=== PATIENT | female | born 1945 | race Hispanic/Latino ===

== ENCOUNTER → 2017-08-28 | Outpatient (CLI) | payer OTHER | END | disposition home or self-care (01) | LOC: OIH 09:36 | PROVIDERS: ATTEND Internal Medicine Cardiovascular Disease | DX: J44.9 Chronic obstructive pulmonary disease, unspecified (principal); I50.32 Chronic diastolic (congestive) heart failure; I51.7 Cardiomegaly; M19.012 Primary osteoarthritis, left shoulder; M19.011 Primary osteoarthritis, right shoulder | CPT/HCPCS: 71046 ==

== ENCOUNTER → 2020-05-15 | Outpatient (CLI) | payer OTHER | END | disposition home or self-care (01) | LOC: RAH 10:38 | PROVIDERS: ATTEND Internal Medicine | DX: K80.20 Calculus of gallbladder without cholecystitis without obstruction (principal); K59.00 Constipation, unspecified; M47.815 Spondylosis without myelopathy or radiculopathy, thoracolumbar region; K59.8 Other specified functional intestinal disorders | CPT/HCPCS: 74018 ==

== ENCOUNTER 2021-02-20 14:39 | Inpatient (IN) | payer OTHER ==
[~2021-02-20] VITALS: Ht 170.2 cm; Wt 112.0 kg
[2021-02-20 14:40] VITALS: BP 127/85
[2021-02-20] MEDS ORDERED: IPRATROPIUM/ALBUTEROL SULFATE 3 ML SOLUTION IH ONE ×2 (15:00→19:58)
[2021-02-20 15:42] VITALS: BP 130/78
[2021-02-20 15:51] LABS: BASOPHILS % (AUTO) 0.4 % (0.0-5.0); EOSINOPHILS % (AUTO) 3.1 % (0.0-8.0); HEMATOCRIT 32.3 % (36-48); LYMPHOCYTES % (AUTO) 12.4 % (21.0-51.0); MEAN CORPUSCULAR HEMOGLOBIN 26.8 pg (27.0-33.0); MEAN CORPUSCULAR HGB CONC 33.4 g/dL (32.0-36.0); MEAN CORPUSCULAR VOLUME 80.1 fL (79-99); MONOCYTES % (AUTO) 8.4 % (3.0-13.0); NEUTROPHILS % (AUTO) 75.3 % (40.0-77.0); PLATELET COUNT (AUTO) 239 K/uL (130-400); RED BLOOD CELL COUNT(AUTO) 4.03 MIL/uL (4.00-5.50); RED CELL DISTRIBUTION WIDTH 14.4 % (11.0-15.5)
[2021-02-20 16:26] LABS: ALBUMIN 3.6 g/dL (3.5-5.0); CREATININE 1.2 mg/dL (0.5-1.5); TOTAL PROTEIN, SERUM 7.4 g/dL (6.0-8.3)
[2021-02-20 17:23] LABS: APPEARANCE,URINE Clear (CLEAR); BILIRUBIN,URINE Negative (NEGATIVE); COLOR,URINE Yellow (YELLOW); GLUCOSE, URINE (UA) Negative (NEGATIVE); KETONES,URINE Negative (NEGATIVE); LEUKOCYTE ESTERASE ,URINE Negative (NEGATIVE); NITRATE,URINE Negative (NEGATIVE); OCCULT BLOOD,URINE Negative (NEGATIVE); PROTEIN,URINE Negative (NEGATIVE); UROBILINOGEN,URINE 0.2 mg/dL (0.2-1.0)
[2021-02-20] MEDS ORDERED: LACTULOSE 20 GM/30 ML UDCUP PO PRN (19:00)
[2021-02-20] MEDS ORDERED: ONDANSETRON 4MG INJ IV PRN (19:00)
[2021-02-20] MEDS: 0.9%NACL 1000ML 1,000 ML IV SCH (19:00)
[2021-02-20] MEDS ORDERED: HYDRALAZINE 20MG/ML VIAL IV PRN (19:00)
[2021-02-20 19:05] VITALS: BP 121/78
[2021-02-20 19:32] LABS: CREATININE 1.2 mg/dL (0.5-1.5); PHOSPHORUS 3.4 mg/dL (2.5-4.9); POTASSIUM 3.8 mmol/L (3.5-5.1)
[2021-02-20] MEDS ORDERED: HEPARIN 5,000 UNIT VIAL SQ SCH (21:00)
[2021-02-20] MEDS: IPRATROPIUM/ALBUTEROL SULFATE 3 ML SOLUTION IH SCH (22:00)
[2021-02-20 23:00] VITALS: BP 124/68
[2021-02-20 23:51] VITALS: BP 113/76
[2021-02-21] VITALS (10 sets, daily range): BP systolic 104–150; BP diastolic 33–90
[2021-02-21] MEDS: ACETAMINOPHEN 325 MG TAB PO PRN ×2 (00:11→19:43)
[2021-02-21] MEDS ORDERED: VALS80TA30 PO (00:25)
[2021-02-21] MEDS ORDERED: ROSU5TAB12 PO (00:25)
[2021-02-21] MEDS ORDERED: AMLO-257 PO (00:25)
[2021-02-21] MEDS ORDERED: FURO40TA5 PO (00:25)
[2021-02-21] MEDS ORDERED: CEPH500C2 PO (00:25)
[2021-02-21] MEDS ORDERED: METO2.5T2 PO (00:25)
[2021-02-21] MEDS ORDERED: POTA20TA82 PO (00:25)
[2021-02-21] MEDS ORDERED: ALBU8.5H8 IH (00:25)
[2021-02-21] MEDS ORDERED: MONT10TA32 PO (00:25)
[2021-02-21] MEDS ORDERED: APIX5TAB PO (00:25)
[2021-02-21] MEDS ORDERED: BENZ-70 PO (00:25)
[2021-02-21] MEDS ORDERED: METO-408 PO (00:25)
[2021-02-21] MEDS ORDERED: CALC-190 PO (00:25)
[2021-02-21 01:04] LABS: CREATININE 1.3 mg/dL (0.5-1.5); POTASSIUM 3.7 mmol/L (3.5-5.1)
[2021-02-21] MEDS: IPRATROPIUM/ALBUTEROL SULFATE 3 ML SOLUTION IH SCH ×6 (02:00→22:28)
[2021-02-21] MEDS: 0.9%NACL 1000ML 1,000 ML IV SCH (03:57)
[2021-02-21 06:39] LABS: BASOPHILS % (AUTO) 0.7 % (0.0-5.0); EOSINOPHILS % (AUTO) 4.4 % (0.0-8.0); HEMATOCRIT 29.6 % (36-48); LYMPHOCYTES % (AUTO) 10.5 % (21.0-51.0); MEAN CORPUSCULAR HEMOGLOBIN 27.6 pg (27.0-33.0); MEAN CORPUSCULAR HGB CONC 33.8 g/dL (32.0-36.0); MEAN CORPUSCULAR VOLUME 81.8 fL (79-99); MONOCYTES % (AUTO) 9.6 % (3.0-13.0); NEUTROPHILS % (AUTO) 74.7 % (40.0-77.0); PLATELET COUNT (AUTO) 200 K/uL (130-400); RED BLOOD CELL COUNT(AUTO) 3.62 MIL/uL (4.00-5.50); RED CELL DISTRIBUTION WIDTH 14.4 % (11.0-15.5); WHITE BLOOD COUNT (AUTO) 7.1 K/uL (4.8-10.8)
[2021-02-21 06:58] LABS: CREATININE 1.2 mg/dL (0.5-1.5); MAGNESIUM 1.9 mg/dL (1.80-2.40); PHOSPHORUS 4.2 mg/dL (2.5-4.9); POTASSIUM 3.8 mmol/L (3.5-5.1)
[2021-02-21] MEDS ORDERED: ALBUTEROL 0.083% 2.5 MG/3 ML INH IH PRN (08:00)
[2021-02-21] MEDS: FAMOTIDINE 20MG TAB PO SCH (09:05)
[2021-02-21] MEDS: AMLODIPINE 5 MG TAB PO SCH (09:05)
[2021-02-21] MEDS: APIXABAN 5 MG TABLET PO SCH ×2 (09:05→19:38)
[2021-02-21] MEDS: MONTELUKAST SODIUM 10 MG TAB PO SCH (09:05)
[2021-02-21] MEDS: SODIUM CHLORIDE 1,000 MG TAB PO SCH ×3 (09:05→21:22)
[2021-02-21] MEDS: METOPROLOL SUCCINATE 50 MG TAB.SR.24H PO SCH (09:05)
[2021-02-21 12:48] LABS: CREATININE 1.3 mg/dL (0.5-1.5); POTASSIUM 3.6 mmol/L (3.5-5.1)
[2021-02-21 18:31] LABS: CREATININE 1.3 mg/dL (0.5-1.5); POTASSIUM 3.7 mmol/L (3.5-5.1)
[2021-02-21] MEDS: ATORVASTATIN 10 MG TABLET PO SCH (19:38)
[2021-02-22 00:35] LABS: CREATININE 1.2 mg/dL (0.5-1.5); POTASSIUM 3.7 mmol/L (3.5-5.1)
[2021-02-22] MEDS: IPRATROPIUM/ALBUTEROL SULFATE 3 ML SOLUTION IH SCH ×6 (02:27→22:36)
[2021-02-22] MEDS: SODIUM CHLORIDE 1,000 MG TAB PO SCH ×5 (02:58→20:59)
[2021-02-22 03:53] VITALS: BP 149/80
[2021-02-22 07:15] LABS: CREATININE 1.2 mg/dL (0.5-1.5); POTASSIUM 3.5 mmol/L (3.5-5.1)
[2021-02-22 07:30] VITALS: BP 108/75
[2021-02-22] MEDS: AMLODIPINE 5 MG TAB PO SCH (09:00)
[2021-02-22] MEDS: METOPROLOL SUCCINATE 50 MG TAB.SR.24H PO SCH (09:11)
[2021-02-22] MEDS: APIXABAN 5 MG TABLET PO SCH ×2 (09:11→20:58)
[2021-02-22] MEDS: FAMOTIDINE 20MG TAB PO SCH (09:11)
[2021-02-22] MEDS: MONTELUKAST SODIUM 10 MG TAB PO SCH (09:11)
[2021-02-22 11:00] VITALS: BP 142/70
[2021-02-22] MEDS: ACETAMINOPHEN 325 MG TAB PO PRN ×2 (12:10→21:49)
[2021-02-22 12:51] LABS: CREATININE 1.2 mg/dL (0.5-1.5); POTASSIUM 3.3 mmol/L (3.5-5.1)
[2021-02-22 16:00] VITALS: BP 142/70
[2021-02-22 19:40] VITALS: BP 129/105
[2021-02-22] MEDS: ATORVASTATIN 10 MG TABLET PO SCH (20:58)
[2021-02-22 23:15] VITALS: BP 95/50
[2021-02-23] MEDS: SODIUM CHLORIDE 1,000 MG TAB PO SCH ×5 (02:26→23:37)
[2021-02-23] MEDS: IPRATROPIUM/ALBUTEROL SULFATE 3 ML SOLUTION IH SCH ×6 (02:31→22:24)
[2021-02-23 04:30] VITALS: BP 113/52
[2021-02-23 05:43] LABS: CREATININE 1.3 mg/dL (0.5-1.5); POTASSIUM 3.2 mmol/L (3.5-5.1)
[2021-02-23] MEDS ORDERED: KCL 20 MEQ ERTAB PO ONE (05:58)
[2021-02-23] MEDS ORDERED: LIDOCAINE HCL-MPF 1% 2ML VIAL IV PRN (06:00)
[2021-02-23] MEDS ORDERED: POTASSIUM CHLORIDE 10% ELIXIR 20 MEQ/15 ML UDCUP PO PRN (06:00)
[2021-02-23] MEDS ORDERED: POTASSIUM CHLORIDE 20MEQ/100ML 100 ML IV PRN (06:00)
[2021-02-23 08:00] VITALS: BP 120/48
[2021-02-23] MEDS: MONTELUKAST SODIUM 10 MG TAB PO SCH (08:50)
[2021-02-23] MEDS: AMLODIPINE 5 MG TAB PO SCH (08:50)
[2021-02-23] MEDS: FAMOTIDINE 20MG TAB PO SCH (08:50)
[2021-02-23] MEDS: KCL 20 MEQ ERTAB PO PRN ×2 (08:51→14:56)
[2021-02-23] MEDS: APIXABAN 5 MG TABLET PO SCH ×2 (08:51→21:14)
[2021-02-23] MEDS: METOPROLOL SUCCINATE 50 MG TAB.SR.24H PO SCH (08:51)
[2021-02-23 12:00] VITALS: BP 117/62
[2021-02-23 16:00] VITALS: BP 126/60
[2021-02-23 19:30] VITALS: BP 121/72
[2021-02-23] MEDS: ATORVASTATIN 10 MG TABLET PO SCH (21:14)
[2021-02-23 23:09] VITALS: BP 105/58
[2021-02-23] MEDS: ACETAMINOPHEN 325 MG TAB PO PRN (23:38)
[2021-02-24] MEDS: IPRATROPIUM/ALBUTEROL SULFATE 3 ML SOLUTION IH SCH ×6 (02:22→21:49)
[2021-02-24 03:20] VITALS: BP 108/62
[2021-02-24] MEDS: SODIUM CHLORIDE 1,000 MG TAB PO SCH ×2 (06:15→14:31)
[2021-02-24 06:40] LABS: CREATININE 1.2 mg/dL (0.5-1.5)
[2021-02-24 07:00] VITALS: BP 117/67
[2021-02-24] MEDS: METOPROLOL SUCCINATE 50 MG TAB.SR.24H PO SCH (09:57)
[2021-02-24] MEDS: APIXABAN 5 MG TABLET PO SCH ×2 (09:57→20:46)
[2021-02-24] MEDS: MONTELUKAST SODIUM 10 MG TAB PO SCH (09:57)
[2021-02-24] MEDS: AMLODIPINE 5 MG TAB PO SCH (09:57)
[2021-02-24] MEDS: FAMOTIDINE 20MG TAB PO SCH (09:57)
[2021-02-24 11:00] VITALS: BP 139/56
[2021-02-24] MEDS: ACETAMINOPHEN 325 MG TAB PO PRN ×2 (14:30→20:47)
[2021-02-24 15:00] VITALS: BP 119/51
[2021-02-24] MEDS: ATORVASTATIN 10 MG TABLET PO SCH (20:47)
[2021-02-24 23:21] VITALS: BP 131/39
[2021-02-25] MEDS: SODIUM CHLORIDE 1,000 MG TAB PO SCH ×5 (00:24→23:42)
[2021-02-25] MEDS: IPRATROPIUM/ALBUTEROL SULFATE 3 ML SOLUTION IH SCH ×6 (02:15→23:17)
[2021-02-25 04:15] VITALS: BP 119/51
[2021-02-25 05:43] LABS: ALBUMIN 3.1 g/dL (3.5-5.0); BILIRUBIN,TOTAL 0.8 mg/dL (0.2-1.0); CREATININE 1.3 mg/dL (0.5-1.5); POTASSIUM 3.5 mmol/L (3.5-5.1); TOTAL PROTEIN, SERUM 6.6 g/dL (6.0-8.3)
[2021-02-25] MEDS: KCL 20 MEQ ERTAB PO PRN (05:59)
[2021-02-25 08:00] VITALS: BP 117/92
[2021-02-25] MEDS ORDERED: NACL NASAL SPRAY 120 SPRAY/BOTTLE NS PRN (08:00)
[2021-02-25] MEDS: AMLODIPINE 5 MG TAB PO SCH (09:16)
[2021-02-25] MEDS: METOPROLOL SUCCINATE 50 MG TAB.SR.24H PO SCH (09:16)
[2021-02-25] MEDS: FAMOTIDINE 20MG TAB PO SCH (09:16)
[2021-02-25] MEDS: APIXABAN 5 MG TABLET PO SCH ×2 (09:17→21:55)
[2021-02-25] MEDS: MONTELUKAST SODIUM 10 MG TAB PO SCH (09:17)
[2021-02-25 11:00] VITALS: BP 144/53
[2021-02-25 16:00] VITALS: BP 119/61
[2021-02-25 19:33] VITALS: BP 139/58
[2021-02-25] MEDS: ATORVASTATIN 10 MG TABLET PO SCH (21:55)
[2021-02-25 23:40] VITALS: BP 126/76
[2021-02-26] MEDS: IPRATROPIUM/ALBUTEROL SULFATE 3 ML SOLUTION IH SCH ×6 (02:23→23:50)
[2021-02-26 03:59] VITALS: BP 139/74
[2021-02-26 05:03] LABS: HEMATOCRIT 30.8 % (36-48); MEAN CORPUSCULAR HEMOGLOBIN 27.3 pg (27.0-33.0); MEAN CORPUSCULAR HGB CONC 31.8 g/dL (32.0-36.0); MEAN CORPUSCULAR VOLUME 85.8 fL (79-99); RED BLOOD CELL COUNT(AUTO) 3.59 MIL/uL (4.00-5.50); RED CELL DISTRIBUTION WIDTH 14.6 % (11.0-15.5); WHITE BLOOD COUNT (AUTO) 5.7 K/uL (4.8-10.8)
[2021-02-26 05:15] LABS: BILIRUBIN,TOTAL 0.9 mg/dL (0.2-1.0); POTASSIUM 3.8 mmol/L (3.5-5.1); TOTAL PROTEIN, SERUM 6.4 g/dL (6.0-8.3)
[2021-02-26] MEDS: SODIUM CHLORIDE 1,000 MG TAB PO SCH (06:02)
[2021-02-26 08:00] VITALS: BP 133/70
[2021-02-26] MEDS: METOPROLOL SUCCINATE 50 MG TAB.SR.24H PO SCH (09:03)
[2021-02-26] MEDS: MONTELUKAST SODIUM 10 MG TAB PO SCH (09:03)
[2021-02-26] MEDS: FAMOTIDINE 20MG TAB PO SCH (09:05)
[2021-02-26] MEDS: AMLODIPINE 5 MG TAB PO SCH (09:05)
[2021-02-26] MEDS: APIXABAN 5 MG TABLET PO SCH ×2 (09:06→20:10)
[2021-02-26 12:00] VITALS: BP 136/70
[2021-02-26] MEDS ORDERED: FUROSEMIDE 40MG VIAL IV ONE (13:30)
[2021-02-26 16:00] VITALS: BP 152/86
[2021-02-26 19:47] LABS: ABG BASE EXCESS 6.2 mmol/L (-2.0-3.0); ABG HCO3 33.3 mmol/L (21.0-28.0); ABG OXYGEN SATURATION 97.2 % (95.0-99.0); ABG PCO2 61 mmHg (32-45)
[2021-02-26 19:55] VITALS: BP 146/80
[2021-02-26] MEDS: FUROSEMIDE 40MG VIAL IV SCH (20:10)
[2021-02-26] MEDS: ATORVASTATIN 10 MG TABLET PO SCH (20:10)
[2021-02-26] MEDS: SPIRONOLACTONE 25 MG TAB PO SCH (20:11)
[2021-02-27] VITALS (7 sets, daily range): BP systolic 100–149; BP diastolic 41–68
[2021-02-27] MEDS: IPRATROPIUM/ALBUTEROL SULFATE 3 ML SOLUTION IH SCH ×6 (02:26→21:35)
[2021-02-27 05:28] LABS: HEMATOCRIT 32.8 % (36-48); MEAN CORPUSCULAR HGB CONC 31.7 g/dL (32.0-36.0); MEAN CORPUSCULAR VOLUME 85.2 fL (79-99); RED BLOOD CELL COUNT(AUTO) 3.85 MIL/uL (4.00-5.50); RED CELL DISTRIBUTION WIDTH 14.7 % (11.0-15.5); WHITE BLOOD COUNT (AUTO) 6.3 K/uL (4.8-10.8)
[2021-02-27 05:41] LABS: CREATININE 0.9 mg/dL (0.5-1.5); MAGNESIUM 1.6 mg/dL (1.80-2.40); PHOSPHORUS 3.2 mg/dL (2.5-4.9); POTASSIUM 3.5 mmol/L (3.5-5.1)
[2021-02-27] MEDS: AMLODIPINE 5 MG TAB PO SCH (09:00)
[2021-02-27] MEDS: SPIRONOLACTONE 25 MG TAB PO SCH ×2 (09:00→21:38)
[2021-02-27] MEDS ORDERED: IOHEXOL-350 75 ML VIAL IV ONE (10:06)
[2021-02-27] MEDS: FAMOTIDINE 20MG TAB PO SCH (11:58)
[2021-02-27] MEDS: FUROSEMIDE 40MG VIAL IV SCH ×2 (11:59→21:39)
[2021-02-27] MEDS: KCL 20 MEQ ERTAB PO PRN ×2 (11:59→12:06)
[2021-02-27] MEDS: MONTELUKAST SODIUM 10 MG TAB PO SCH (11:59)
[2021-02-27] MEDS ORDERED: MAGNESIUM 2GM PREMIX 50ML 50 ML IV SCH (12:00)
[2021-02-27] MEDS: APIXABAN 5 MG TABLET PO SCH ×2 (12:04→21:39)
[2021-02-27] MEDS: METOPROLOL SUCCINATE 50 MG TAB.SR.24H PO SCH (17:05)
[2021-02-27] MEDS: ATORVASTATIN 10 MG TABLET PO SCH (21:38)
[2021-02-28] MEDS: IPRATROPIUM/ALBUTEROL SULFATE 3 ML SOLUTION IH SCH ×6 (01:23→23:04)
[2021-02-28 03:49] VITALS: BP 122/56
[2021-02-28 05:16] LABS: HEMATOCRIT 32.3 % (36-48); MEAN CORPUSCULAR HEMOGLOBIN 26.7 pg (27.0-33.0); MEAN CORPUSCULAR HGB CONC 30.7 g/dL (32.0-36.0); MEAN CORPUSCULAR VOLUME 87.1 fL (79-99); PLATELET COUNT (AUTO) 180 K/uL (130-400); RED BLOOD CELL COUNT(AUTO) 3.71 MIL/uL (4.00-5.50); RED CELL DISTRIBUTION WIDTH 14.6 % (11.0-15.5); WHITE BLOOD COUNT (AUTO) 5.7 K/uL (4.8-10.8)
[2021-02-28 05:50] LABS: CREATININE 1.2 mg/dL (0.5-1.5); POTASSIUM 4.1 mmol/L (3.5-5.1)
[2021-02-28 07:09] VITALS: BP 114/52
[2021-02-28] MEDS: FUROSEMIDE 40MG VIAL IV SCH ×2 (08:57→21:04)
[2021-02-28] MEDS: MONTELUKAST SODIUM 10 MG TAB PO SCH (08:58)
[2021-02-28] MEDS: METOPROLOL SUCCINATE 50 MG TAB.SR.24H PO SCH (08:58)
[2021-02-28] MEDS: APIXABAN 5 MG TABLET PO SCH ×2 (08:58→21:05)
[2021-02-28] MEDS: SPIRONOLACTONE 25 MG TAB PO SCH ×2 (08:58→21:05)
[2021-02-28] MEDS: FAMOTIDINE 20MG TAB PO SCH (08:59)
[2021-02-28] MEDS: AMLODIPINE 5 MG TAB PO SCH (08:59)
[2021-02-28] MEDS ORDERED: LEVOFLOXACIN 500 MG TABLET PO SCH (09:38)
[2021-02-28 11:13] VITALS: BP 107/67
[2021-02-28 15:27] VITALS: BP 122/45
[2021-02-28 19:58] VITALS: BP 125/56
[2021-02-28] MEDS ORDERED: LEVOFLOXACIN 500 MG TABLET ONE (20:58)
[2021-02-28] MEDS: ATORVASTATIN 10 MG TABLET PO SCH (21:05)
[2021-02-28 23:22] VITALS: BP 128/55
[2021-03-01] MEDS: IPRATROPIUM/ALBUTEROL SULFATE 3 ML SOLUTION IH SCH ×4 (02:32→13:01)
[2021-03-01 03:23] VITALS: BP 118/54
[2021-03-01 04:45] LABS: HEMATOCRIT 30.5 % (36-48); MEAN CORPUSCULAR HEMOGLOBIN 26.6 pg (27.0-33.0); MEAN CORPUSCULAR HGB CONC 30.8 g/dL (32.0-36.0); MEAN CORPUSCULAR VOLUME 86.2 fL (79-99); RED BLOOD CELL COUNT(AUTO) 3.54 MIL/uL (4.00-5.50); RED CELL DISTRIBUTION WIDTH 14.7 % (11.0-15.5); WHITE BLOOD COUNT (AUTO) 5.3 K/uL (4.8-10.8)
[2021-03-01 04:49] LABS: CREATININE 1.3 mg/dL (0.5-1.5); POTASSIUM 3.9 mmol/L (3.5-5.1)
[2021-03-01 08:00] VITALS: BP 136/68
[2021-03-01] MEDS: SPIRONOLACTONE 25 MG TAB PO SCH (08:56)
[2021-03-01] MEDS: AMLODIPINE 5 MG TAB PO SCH (08:56)
[2021-03-01] MEDS: APIXABAN 5 MG TABLET PO SCH (08:57)
[2021-03-01] MEDS: FAMOTIDINE 20MG TAB PO SCH (08:57)
[2021-03-01] MEDS: FUROSEMIDE 40MG VIAL IV SCH (08:57)
[2021-03-01] MEDS: METOPROLOL SUCCINATE 50 MG TAB.SR.24H PO SCH (08:57)
[2021-03-01] MEDS: MONTELUKAST SODIUM 10 MG TAB PO SCH (08:57)
[2021-03-01] MEDS ORDERED: LEVOFLOXACIN 500 MG TABLET PO SCH (09:00)
[2021-03-01] MEDS ORDERED: SPIR25TA6 PO (10:35)
[2021-03-01] MEDS ORDERED: FURO40TA5 PO (10:35)
[2021-03-01] MEDS ORDERED: LEVO250T59 PO (10:37)
[2021-03-01 12:00] VITALS: BP 120/67
== END 2021-03-01 16:00 | disposition home or self-care (01) | DRG 291 ==
LOC: EDH 14:39 → EDHIP 17:59 → OBSVTOIN 17:59 → 3BH 22:17
PROVIDERS: ADMIT Internal Medicine; ATTEND Internal Medicine
PROC: 5A09357 Assistance with Respiratory Ventilation, Less than 24 Consecutive Hours, Continuous Positive Airway Pressure (ICD-10-PCS; principal; 2021-02-26)
PROC: 5A09357 Assistance with Respiratory Ventilation, Less than 24 Consecutive Hours, Continuous Positive Airway Pressure (ICD-10-PCS; 2021-02-28)
DX: I11.0 Hypertensive heart disease with heart failure (principal); J18.9 Pneumonia, unspecified organism; J96.90 Respiratory failure, unspecified, unspecified whether with hypoxia or hypercapnia; E87.1 Hypo-osmolality and hyponatremia; E66.2 Morbid (severe) obesity with alveolar hypoventilation; N28.9 Disorder of kidney and ureter, unspecified; I48.91 Unspecified atrial fibrillation; J45.909 Unspecified asthma, uncomplicated; M19.90 Unspecified osteoarthritis, unspecified site; Z68.38 Body mass index [BMI] 38.0-38.9, adult; Z89.612 Acquired absence of left leg above knee; K59.00 Constipation, unspecified; I25.10 Atherosclerotic heart disease of native coronary artery without angina pectoris; I35.1 Nonrheumatic aortic (valve) insufficiency; Z53.20 Procedure and treatment not carried out because of patient's decision for unspecified reasons; Z79.01 Long term (current) use of anticoagulants; Z89.512 Acquired absence of left leg below knee; Z96.651 Presence of right artificial knee joint; I50.9 Heart failure, unspecified; Z99.3 Dependence on wheelchair; Z79.899 Other long term (current) drug therapy
CPT/HCPCS: 36415; 36600; 71045; 71270; 76700; 80048; 80053; 81003; 82435; 82803; 82947; 83605; 83735; 83880; 83930; 83935; 84100; 84132; 84295; 84300; 84443; 84484; 85018; 85025; 85027; 85378; 93005; 93306; 93970; 94640; 94660; 97039; G0378; J1644; J1940; J7030; Q9967

== ENCOUNTER → 2021-11-20 | Outpatient (CLI) | payer OTHER ==
[~2021-11-20] MED LIST: ALBU8.5H8 IH; AMLO-257 PO; APIX5TAB PO; BENZ-70 PO; CALC-190 PO; FURO40TA5 PO; LEVO250T43 PO; METO-408 PO; MONT-39 PO; POTA-202 PO; ROSU5TAB12 PO; SPIR25TA6 PO
== END | disposition home or self-care (01) ==
LOC: RAH 08:18
PROVIDERS: ATTEND Internal Medicine
DX: K80.20 Calculus of gallbladder without cholecystitis without obstruction (principal); N28.1 Cyst of kidney, acquired; R10.11 Right upper quadrant pain
CPT/HCPCS: 76700

== ENCOUNTER 2021-11-22 10:50 | Day surgery (SDC) | payer OTHER ==
[2021-11-22 12:06] LABS: INR 1.06 (0.85-1.15); PROTHROMBIN TIME 11.5 SEC (9.6-11.6)
[2021-11-22 12:07] LABS: PARTIAL THROMBOPLASTIN TIME 27.6 SEC (26.3-35.5)
== END 2021-11-22 16:05 | disposition home or self-care (01) ==
LOC: DAH 10:50
PROVIDERS: ATTEND Internal Medicine
DX: J90 Pleural effusion, not elsewhere classified (principal); I50.33 Acute on chronic diastolic (congestive) heart failure; J44.9 Chronic obstructive pulmonary disease, unspecified; Z79.899 Other long term (current) drug therapy; Z79.01 Long term (current) use of anticoagulants
CPT/HCPCS: 36415; 71045; 76604; 85610; 85730; A4606; A4615

== ENCOUNTER → 2022-02-24 | Outpatient (CLI) | payer OTHER ==
[~2022-02-24] MED LIST changes: -AMLO-257 PO; -BENZ-70 PO; +CHOL500045 PO; +FLUT1BLS3 IH; -LEVO250T43 PO; +LEVO500T90 PO; -POTA-202 PO; -SPIR25TA6 PO
[2022-02-24 12:24] LABS: CREATININE 1.4 mg/dL (0.5-1.5); POTASSIUM 3.2 mmol/L (3.5-5.1)
== END | disposition home or self-care (01) ==
LOC: LAB 11:06
PROVIDERS: ATTEND Internal Medicine Cardiovascular Disease
DX: I50.32 Chronic diastolic (congestive) heart failure (principal); D68.59 Other primary thrombophilia; I27.20 Pulmonary hypertension, unspecified; I48.21 Permanent atrial fibrillation
CPT/HCPCS: 36415; 80048; 83880

== ENCOUNTER → 2022-03-17 | Outpatient (CLI) | payer OTHER ==
[2022-03-17 12:50] LABS: CREATININE 1.8 mg/dL (0.5-1.5); POTASSIUM 5.9 mmol/L (3.5-5.1); TOTAL PROTEIN, SERUM 7.8 g/dL (6.0-8.3)
== END | disposition home or self-care (01) ==
LOC: LAB 10:17
PROVIDERS: ATTEND Internal Medicine Cardiovascular Disease
DX: I50.32 Chronic diastolic (congestive) heart failure (principal); I10 Essential (primary) hypertension; I27.20 Pulmonary hypertension, unspecified
CPT/HCPCS: 36415; 80053; 83880

== ENCOUNTER → 2022-03-31 | Outpatient (CLI) | payer OTHER ==
[~2022-03-31] MED LIST changes: +LEVO-70 PO; -LEVO500T90 PO
[2022-03-31 12:29] LABS: CREATININE 1.3 mg/dL (0.5-1.5)
[2022-03-31 12:52] LABS: POTASSIUM 2.8 mmol/L (3.5-5.1)
== END | disposition home or self-care (01) ==
LOC: LAB 09:36
PROVIDERS: ATTEND Internal Medicine Cardiovascular Disease
DX: I10 Essential (primary) hypertension (principal); E78.5 Hyperlipidemia, unspecified
CPT/HCPCS: 36415; 80048; 83880

== ENCOUNTER → 2022-04-07 | Outpatient (CLI) | payer OTHER ==
[2022-04-07 12:35] LABS: CREATININE 1.9 mg/dL (0.5-1.5); POTASSIUM 4.3 mmol/L (3.5-5.1)
== END | disposition home or self-care (01) ==
LOC: LAB 09:53
PROVIDERS: ATTEND Internal Medicine Cardiovascular Disease
DX: E87.6 Hypokalemia (principal); I50.32 Chronic diastolic (congestive) heart failure
CPT/HCPCS: 36415; 80048; 83880

== ENCOUNTER → 2022-04-28 | Outpatient (CLI) | payer OTHER ==
[2022-04-28 13:04] LABS: CREATININE 1.6 mg/dL (0.5-1.5); POTASSIUM 3.7 mmol/L (3.5-5.1)
== END | disposition home or self-care (01) ==
LOC: LAB 08:36
PROVIDERS: ATTEND Internal Medicine Cardiovascular Disease
DX: I50.32 Chronic diastolic (congestive) heart failure (principal)
CPT/HCPCS: 36415; 80048; 83735; 83880

== ENCOUNTER → 2022-05-26 | Outpatient (CLI) | payer OTHER ==
[2022-05-26 12:24] LABS: CREATININE 1.7 mg/dL (0.5-1.5); POTASSIUM 4.4 mmol/L (3.5-5.1)
== END | disposition home or self-care (01) ==
LOC: LAB 09:52
PROVIDERS: ATTEND Internal Medicine Cardiovascular Disease
DX: I50.32 Chronic diastolic (congestive) heart failure (principal); I10 Essential (primary) hypertension
CPT/HCPCS: 36415; 80048; 83880